=== PATIENT | female | born 1970 | race Two or more races ===

== ENCOUNTER 2021-02-20 15:26 | Emergency (ER) | payer MEDICAID, OTHER ==
[~2021-02-20] VITALS: Ht 160 cm; Wt 90.7 kg
[2021-02-20 15:26] VITALS: BP 122/72
== END 2021-02-20 20:17 | disposition home or self-care (01) ==
LOC: ER 15:26
DX: F41.9 Anxiety disorder, unspecified (principal); R00.2 Palpitations; E78.5 Hyperlipidemia, unspecified; I10 Essential (primary) hypertension; Z88.2 Allergy status to sulfonamides
CPT/HCPCS: 93005